=== PATIENT | female | born 1970 | race Caucasian/White ===

== ENCOUNTER 2025-06-29 10:57 | Emergency (ER) | payer BC ==
[~2025-06-29] VITALS: Ht 162.6 cm; Wt 68.2 kg
[2025-06-29 11:19] VITALS: TEMP 97.8; O2SAT 98
--- NOTE | 2025-06-29 12:14 | Physician Documentation ---
History of Present Illness ~ Chief Complaint: Abdominal Pain Stated Complaint: ABDOMINAL PAIN Time Seen by MD: 11:28 Source: patient, family Mode of Arrival: POV Exam Limitations: no limitations HPI 55-year-old female was evaluated at [facility] in [place] on June 24 and was released with information on hydronephrosis with pelvecatasis well as in the ureter of the right side. Patient has chronic pain and does have a pain contract with a provider in [place]. Patient was unable to tow picker from her primary care provider any Percocet but is currently taking [place] 05/16/2025 every 6 hours. Patient states that this is not touching her acute pain to the right flank. Patient has faxed over new patient paperwork to [facility] and was told that they would contact her this week for an appointment. Medication Reconciliation Allergies: Coded Allergies: No Known Allergies (Unverified , 06/29/25) Past Medical History Past Medical History: *RENAL/* Past Surgical History: noncontributory Lives with: Family Lives In: Home Occupation: disabled Review of Systems All Other Systems at this time: Reviewed and Negative Genitourinary: Reports: see HPI Physical Exam Vital Signs: RN Vital Signs have been reviewed: Yes, Temperature: 97.8, Source: Oral, Heart Rate: 88, Respiratory Rate: 16, BP: 149/68, Pulse Oximetry: 98, Weight: 68.180 Physical Exam General: Alert, no apparent distress. HEENT: moist mucous membranes. Neck: Full range of motion. Respiratory: No respiratory distress speaking in full sentences Chest: No accessory muscle use. Cardiovascular: Appears well perfused Genitourinary: Right CVA tenderness Neurologic: Oriented x4. Psychiatric: Normal mood and affect. Skin: Normal color, warm and dry. No edema, no ecchymosis. 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 Patient's primary complaint is pain although patient has chronic pain and does have a pain contract inhibiting receiving pain medication. This seems to be her primary complaint. Preliminary report on the ultrasound shows very little hydronephrosis but does state the ureteral jet does contract slower than the left side. Patient is working closely with getting an appointment with Urology. Patient being on a pain contract at this time needs to contact both primary care and her pain specialist. We will start Flomax to potentially help relax the ureter. Patient and family member Urinary Diff Dx:Considerations: Include: Urinary Obstruction, Urolithiasis, Urinary retention, UTI Genital Diff Dx:Considerations: Include: Other Departure Time of Disposition: 13:04 Disposition: 01 HOME / SELF CARE / HOMELESS Impression: Primary Impression: Right flank pain Condition: Stable Discharge Instructions: Abdominal Pain (Nonspecific) Additional Instructions: The ultrasound did not indicate significant fluid around your kidney. No clear visualization although this is an ultrasound of any cyst. Continue to follow up with [facility] to have an appointment to further evaluate and treat causes of cyst. At this time due to pain contract along with the inability to get primary care's medication we will need to contact them to evaluate any further for pain management. Referrals: NO PRIMARY CARE PROVIDER (PCP) Prescriptions Tamsulosin Hcl* (Flomax*) 0.4 Mg Cap.sr.24h 1 CAP PO DAILY for 30 Days, #30 CAP Prov: NAYELY ALONZO NP 06/29/25 Education Educated: Patient, Family Educated regarding: diagnosis, treatment, need for follow up Signature Scribe Signature: No scribe Attestation: The note accurately reflects work and decisions made by me.Nayely Alonzo - NOA 06/29/25 12:14 NAYELY ALONZO NP Jun 29, 2025 12:14
[2025-06-29 12:20] VITALS: BP 129/83; PULSE 75; RESP 18
--- NOTE | 2025-06-29 13:20 | RADIOLOGY REPORT ---
US ULTRASOUND KIDNEY NON VASC HISTORY: Right flank pain history of Pelviectasis COMPARISON: None TECHNIQUE: Transverse and longitudinal grayscale and color doppler images were obtained of the kidneys and bladder. FINDINGS: Right kidney: Size: 9.9 cm Cortical thickness: Normal Echogenicity: Normal Stones: None Masses: None Hydronephrosis: None Ureters: Not well visualized. Other: None Left kidney: Size: 10.7 cm Cortical thickness: Normal Echogenicity: Normal Stones: None Masses: None Hydronephrosis: None Ureters: Not well visualized. Other: None Bladder: Normal Other: None. IMPRESSION: Unremarkable renal ultrasound.
[2025-06-29] MEDS ORDERED: TAMS-55 PO (13:22)
[2025-06-29 13:31] LABS: LEUKOCYTE ESTERASE ,URINE TRACE (Neg); NITRITES, URINE NEGATIVE (Neg); OCCULT BLOOD,URINE NEGATIVE (Neg)
[2025-06-29 13:33] LABS: UA COLLECTION TYPE VOIDED
[2025-06-29 13:39] LABS: AMORPHOUS URATES 1+; MUCUS STRANDS FEW /LPF (Neg); SQUAMOUS EPITHELIAL CELL,UR FEW /LPF (FEW)
== END 2025-06-29 13:33 | disposition home or self-care (01) ==
LOC: ER 11:00
DX: R10.A1 Flank pain, right side (principal); G89.29 Other chronic pain
CPT/HCPCS: 76700; 81001; 87088; 99284